=== PATIENT | female | born 1940 | race African-American/Black ===

== ENCOUNTER 2019-08-29 15:03 | Inpatient (IN) | payer MEDICARE, MEDICAID ==
[~2019-08-29] VITALS: Ht 162.6 cm; Wt 79.4 kg
[2019-08-29 15:15] VITALS: BP 186/82
--- NOTE | 2019-08-29 15:18 | Emergency Room Report ---
History of Present Illness General Chief Complaint: Behavioral Complaint Source: Patient Present Illness HPI 79-year-old female presents ED for evaluation. Brought in by EMS. Per family patient was observed shaking in the car. Patient states she had a vision of "Rosemary Goodman". States that this vision makes her shake. States she feels fine at this time. States she has had similar visions in the past. Denies headache. Denies fevers or chills. Denies any weakness. Denies chest pain or shortness of breath. No other aggravating relieving factors. Denies any other associated symptoms Allergies: Coded Allergies: No Known Allergies (Verified , 09/18/08) Patient History Past Medical History: DM, HTN Past Surgical History: none Pertinent Family History: none Social History: Denies: smoking, alcohol use, drug use Now: No Immunizations: UTD Reviewed Nursing Documentation: PMH: Agreed; PSxH: Agreed Nursing Documentation-PMH Past Medical History: No History, Except For Hx Hypertension: Yes Hx Diabetes: Yes Review of Systems All Other Systems: negative except mentioned in HPI Physical Exam Vital Signs Date Time Temp Pulse Resp B/P (MAP) Pulse Ox O2 Delivery O2 Flow Rate FiO2 08/29/19 15:00 98.6 74 14 186/82 (116) 99 Room Air Sp02 EP Interpretation: reviewed, normal General Appearance: no apparent distress, alert, GCS 15, non-toxic Head: normocephalic, atraumatic Eyes: bilateral eye normal inspection, bilateral eye PERRL ENT: hearing grossly normal, normal pharynx, no angioedema, normal voice Neck: full range of motion, supple/symm/no masses Respiratory: chest non-tender, lungs clear, normal breath sounds, speaking full sentences Cardiovascular #1: regular rate, rhythm, no edema Cardiovascular #2: 2+ carotid (R), 2+ carotid (L), 2+ radial (R), 2+ radial (L) , 2+ dorsalis pedis (R), 2+ dorsalis pedis (L) Gastrointestinal: normal bowel sounds, non tender, soft, non-distended, no guarding, no rebound Rectal: deferred Genitourinary: normal inspection, no CVA tenderness Musculoskeletal: back normal, normal range of motion, gait/station normal, non- tender Neurologic: alert, motor strength/tone normal, oriented x3, sensory intact, responsive, speech normal Psychiatric: judgement/insight normal, memory normal, mood/affect normal, no suicidal/homicidal ideation Reflexes: 3+ bicep (R), 3+ bicep (L), 3+ tricep (R), 3+ tricep (L), 3+ knee (R) , 3+ knee (L) Lymphatic: no adenopathy Medical Decision Making Diagnostic Impression: Primary Impression: Acute encephalopathy Additional Impression: Unsteady gait ER Course Hospital Course 79-year-old female presents with tremors, temporary confusion. Differential diagnosis includes- breakthrough seizure, ETOH, psychosis Clinical course Patient placed on stretcher. Initial history and physical I ordered labs, IV fluids, CT brain Labs-electrolytes okay, no leukocytosis, hemoglobin/hematocrit stable, UA negative CT Brain ok Given age and presentation I believe patient should be admitted. Patient also unsteady on gait. Not safe for discharge at this time. patient admitted to Dr Marrufo's service i. I feel this is a highly complex case requiring extensive working including EKG/Rhythm strip, Xray/CT/US, Blood/urine lab work, repeat exams while in ED, and administration of strong opiates/narcotics for pain control, admission to hospital or close patient follow up. Diagnosis - acute encephalopathy, unsteady gait admitted to floor in serious condition Labs Test 08/29/19 15:18 White Blood Count 6.3 K/UL (4.8-10.8) Red Blood Count 4.31 M/UL (4.20-5.40) Hemoglobin 13.5 G/DL (12.0-16.0) Hematocrit 41.6 % (37.0-47.0) Mean Corpuscular Volume 96 FL (80-99) Mean Corpuscular Hemoglobin 31.3 PG (27.0-31.0) Mean Corpuscular Hemoglobin Concent 32.5 G/DL (32.0-36.0) Red Cell Distribution Width 13.5 % (11.6-14.8) Platelet Count 183 K/UL (150-450) Mean Platelet Volume 9.0 FL (6.5-10.1) Neutrophils (%) (Auto) 42.7 % (45.0-75.0) Lymphocytes (%) (Auto) 46.0 % (20.0-45.0) Monocytes (%) (Auto) 7.2 % (1.0-10.0) Eosinophils (%) (Auto) 2.8 % (0.0-3.0) Basophils (%) (Auto) 1.2 % (0.0-2.0) Urine Color Pale yellow Urine Appearance Clear Urine pH 6 (4.5-8.0) Urine Specific [place] 1.005 (1.005-1.035) Urine Protein Negative (NEGATIVE) Urine Glucose (UA) Negative (NEGATIVE) Urine Ketones Negative (NEGATIVE) Urine Blood Negative (NEGATIVE) Urine Nitrite Negative (NEGATIVE) Urine Bilirubin Negative (NEGATIVE) Urine Urobilinogen Normal MG/DL (0.0-1.0) Urine Leukocyte Esterase Negative (NEGATIVE) Sodium Level 142 MMOL/L (136-145) Potassium Level 3.9 MMOL/L (3.5-5.1) Chloride Level 106 MMOL/L (98-107) Carbon Dioxide Level 28 MMOL/L (21-32) Anion Gap 8 mmol/L (5-15) Blood Urea Nitrogen 24 mg/dL (7-18) Creatinine 1.0 MG/DL (0.55-1.30) Estimat Glomerular Filtration Rate > 60 mL/min (>60) Glucose Level 121 MG/DL (74-106) Calcium Level 9.8 MG/DL (8.5-10.1) Total Bilirubin 0.3 MG/DL (0.2-1.0) Aspartate Amino Transf (AST/SGOT) 28 U/L (15-37) Alanine Aminotransferase (ALT/SGPT) 24 U/L (12-78) Alkaline Phosphatase 88 U/L (46-116) Ammonia < 10 umol/L (11-32) Total Protein 7.8 G/DL (6.4-8.2) Albumin 3.4 G/DL (3.4-5.0) Globulin 4.4 g/dL Albumin/Globulin Ratio 0.8 (1.0-2.7) Salicylates Level 0.9 ug/mL (2.8-20) Urine Opiates Screen Negative (NEGATIVE) Acetaminophen Level < 2 MCG/ML (10-30) Urine Barbiturates Screen Negative (NEGATIVE) Phencyclidine (PCP) Screen Negative (NEGATIVE) Urine Amphetamines Screen Negative (NEGATIVE) Urine Benzodiazepines Screen Negative (NEGATIVE) Urine Cocaine Screen Negative (NEGATIVE) Urine Marijuana (THC) Screen Negative (NEGATIVE) Serum Alcohol < 3 mg/dL CT/MRI/US Diagnostic Results CT/MRI/US Diagnostic Results : Imaging Test Ordered: CT head Impression Findings: No acute intracranial hemorrhage or edema. No mass effect or midline shift. Normal for age ventricles and extra axial CSF spaces. Minimal periventricular deep white matter low-attenuation, consistent with chronic microvascular ischemic change. Old lacunar infarcts are seen in the left basal ganglia. The calvarium is intact. Incidental finding is noted of failure fusion of the posterior arch of C1. Visualized orbits are unremarkable. The mastoids are clear. The visualized sinuses are clear Impression: Mild age-related changes. Old left basal ganglia lacunar infarcts. Negative for acute intracranial bleed or mass effect Last Vital Signs Date Time Temp Pulse Resp B/P (MAP) Pulse Ox O2 Delivery O2 Flow Rate FiO2 08/29/19 15:00 98.6 74 14 186/82 (116) 99 Room Air Status: improved Disposition: ADMITTED INPATIENT Condition: Serious Rian Bose MD Aug 29, 2019 15:18
[2019-08-29 16:00] LABS: BASOPHILS % (AUTO) 1.2 % (0.0-2.0); EOSINOPHILS % (AUTO) 2.8 % (0.0-3.0); HEMATOCRIT 41.6 % (37.0-47.0); HEMOGLOBIN 13.5 G/DL (12.0-16.0); MEAN CORPUSCULAR VOLUME 96 FL (80-99); MONOCYTES % (AUTO) 7.2 % (1.0-10.0); NEUTROPHILS % (AUTO) 42.7 % (45.0-75.0); PLATELET COUNT 183 K/UL (150-450); RED BLOOD COUNT 4.31 M/UL (4.20-5.40); RED CELL DISTRIBUTION WIDTH 13.5 % (11.6-14.8); WHITE BLOOD COUNT 6.3 K/UL (4.8-10.8)
[2019-08-29 16:04] LABS: APPEARANCE,URINE CLEAR; BILIRUBIN, URINE NEGATIVE (NEGATIVE); COLOR,URINE PALE YELLOW; GLUCOSE, URINE (UA) NEGATIVE (NEGATIVE); KETONES,URINE NEGATIVE (NEGATIVE); LEUKOCYTE ESTERASE ,URINE NEGATIVE (NEGATIVE); NITRITE,URINE NEGATIVE (NEGATIVE); PH,URINE 6 (4.5-8.0); PROTEIN,URINE NEGATIVE (NEGATIVE); UROBILINOGEN,URINE NORMAL MG/DL (0.0-1.0)
[2019-08-29 16:14] LABS: ANION GAP 8 mmol/L (5-15); BLOOD UREA NITROGEN 24 mg/dL (7-18); CALCIUM 9.8 MG/DL (8.5-10.1); CARBON DIOXIDE 28 MMOL/L (21-32); CHLORIDE 106 MMOL/L (98-107); POTASSIUM 3.9 MMOL/L (3.5-5.1); SODIUM 142 MMOL/L (136-145)
[2019-08-29 16:16] LABS: ALANINE AMINOTRANSFERASE 24 U/L (12-78); ALBUMIN 3.4 G/DL (3.4-5.0); ALBUMIN/GLOBULIN RATIO 0.8 (1.0-2.7); ALKALINE PHOSPHATASE 88 U/L (46-116); ASPARTATE AMINO TRANSFERASE 28 U/L (15-37); BILIRUBIN,TOTAL 0.3 MG/DL (0.2-1.0)
--- NOTE | 2019-08-29 16:24 | Diagnostic Imaging Report ---
Indications: Altered mental status Technique: Spiral acquisitions obtained through the brain. Angled axial and coronal 5 x 5 mm slices were reconstructed. Total dose length product 965 mGycm. CTDI vol(s) 53 mGy. Dose reduction achieved using automated exposure control Comparison: None. Findings: No acute intracranial hemorrhage or edema. No mass effect or midline shift. Normal for age ventricles and extra axial CSF spaces. Minimal periventricular deep white matter low-attenuation, consistent with chronic microvascular ischemic change. Old lacunar infarcts are seen in the left basal ganglia. The calvarium is intact. Incidental finding is noted of failure fusion of the posterior arch of C1. Visualized orbits are unremarkable. The mastoids are clear. The visualized sinuses are clear Impression: Mild age-related changes. Old left basal ganglia lacunar infarcts. Negative for acute intracranial bleed or mass effect The CT scanner at [facility] is accredited by the [employer] and the scans are performed using protocols designed to limit radiation exposure to as low as reasonably achievable to attain images of sufficient resolution adequate for diagnostic evaluation.
[2019-08-29 16:55] LABS: AMMONIA < 10 umol/L (11-32)
[2019-08-29 18:06] VITALS: BP 156/82
[2019-08-29] MEDS ORDERED: DiphenhydrAMINE 25mg Tab ORAL PRN (18:45)
[2019-08-29] MEDS ORDERED: Mylanta II UD 30ml ORAL PRN (18:45)
--- NOTE | 2019-08-29 19:48 | Diagnostic Imaging Report ---
Indication: Altered mental status and unsteady gait Technique: sagittal T1 fast spin echo, axial T1 FLAIR, axial T2 FLAIR, axial T2 FS PROPELLER, axial T2* GRE, axial diffusion weighted images. ADC and exponential ADC maps generated Comparison: CT brain from 4 hours earlier Findings: No abnormal areas of restricted diffusion to suggest acute infarction. No acute hemorrhage or edema. No mass effect nor midline shift. Normal size, for age, ventricles and extra axial CSF spaces. Patent cavum septum pellucidum-normal anatomic variant. Scattered areas of punctate high T2 signal are seen in the deep white matter bilaterally, likely representing chronic microvascular ischemic changes.. The visualized sinuses are clear. There is evidence of prior bilateral cataract surgery. The vascular flow voids are preserved Impression: Negative for acute intracranial bleed, mass effect, or infarct. Scattered punctate T2 hyperintensities, likely reflecting chronic microvascular ischemic changes
[2019-08-29] MEDS ORDERED: SIMVASTATIN20 MG ORAL (19:50)
[2019-08-29] MEDS ORDERED: VITAMIN B122500 MCG PO (19:50)
[2019-08-29] MEDS ORDERED: ASPIR 8181 MG ORAL (19:50)
[2019-08-29] MEDS ORDERED: FOLIC ACID1 MG ORAL (19:50)
[2019-08-29] MEDS ORDERED: LISINOPRIL40 MG ORAL (19:50)
[2019-08-29] MEDS ORDERED: FISH OIL CAP1000 MG ORAL (19:50)
[2019-08-29] MEDS ORDERED: VITAMIN D3 COM1 EACH PO (19:50)
[2019-08-29] MEDS ORDERED: AMLODIPINE BESYL5 MG ORAL (19:50)
[2019-08-29] MEDS ORDERED: METFORMIN HCL500 M1 ORAL (19:50)
[2019-08-29] MEDS: Aspirin Baby 81mg ORAL SCH (20:00)
[2019-08-29] MEDS: Heparin 5000 units/ml inj SUBQ SCH (21:21)
[2019-08-29] MEDS: Docusate 100mg cap ORAL SCH (21:21)
[2019-08-30 00:25] VITALS: BP 152/89
[2019-08-30 03:49] VITALS: BP 143/68
[2019-08-30 08:00] VITALS: BP 140/77
[2019-08-30] MEDS: Aspirin Baby 81mg ORAL SCH (08:25)
[2019-08-30] MEDS: Docusate 100mg cap ORAL SCH ×2 (08:25→20:55)
[2019-08-30] MEDS: Heparin 5000 units/ml inj SUBQ SCH ×2 (08:28→20:58)
--- NOTE | 2019-08-30 09:10 | History and Physical ---
History of Present Illness General Date patient seen: Aug 30, 2019 Time patient seen: 07:00 Reason for Hospitalization: Behavioral Complaint Present Illness HPI 79 year old woman with history of HTN, DM, no known cardiac disease who presented to the ED last night after family observed her shaking in the car. Patient states she had a vision of "Rosemary holding peace Goodman". States that this vision makes her shake. She also reports left leg weakness without pain Denies fevers or chills. Denies chest pain or shortness of breath. No other aggravating relieving factors. Denies any other complaints. In ED initial workup including basic lab, head CT and MRI brain were negative for acute abnormality. Family Hx: No premature CAD Social Hx: No alcohol or drugs Allergies: Coded Allergies: No Known Allergies (Verified , 09/18/08) Medication History Scheduled Amlodipine Besylate* (Amlodipine Besylate*), 5 MG ORAL DAILY, (Reported) Aspirin* (Aspir 81*), 81 MG ORAL DAILY, (Reported) Fish Oil (Fish Oil 1,000 mg Capsule), 1,000 MG ORAL DAILY, (Reported) Folic Acid* (Folic Acid*), 1 MG ORAL DAILY, (Reported) Lisinopril* (Lisinopril*), 40 MG ORAL DAILY, (Reported) Metformin Hcl* (Metformin Hcl*), 500 MG ORAL TWICE A DAY, (Reported) Simvastatin (Zocor), 20 MG ORAL BEDTIME, (Reported) Miscellaneous Medications Cyanocobalamin (Vitamin B-12) (Vitamin B12), 1,000 MCG PO, (Reported) Mv-Mn/Iron/Fa/Herbal Cmplx#190 (Vitamin D3 Complete Caplet), 1 EACH PO, ( Reported) Patient History Healthcare decision maker Resuscitation status Full Code Advanced Directive on File No Review of Systems Constitutional: Denies: chills, fever Eye: Denies: eye pain, blurred vision, double vision Respiratory: Denies: cough Cardiovascular: Denies: chest pain Gastrointestinal: Denies: abdominal pain, constipation Genitourinary: Denies: dysuria Musculoskeletal: Denies: back pain Neurological: Reports: focal weakness; Denies: headache Endocrine: Denies: excessive sweating Hematologic/Lymphatic: Denies: anemia Physical Exam General Appearance: no apparent distress, alert HEENT: atraumatic, anicteric Neck: normal alignment, supple, normal inspection Respiratory/Chest: lungs clear, normal breath sounds, no respiratory distress Cardiovascular/Chest: normal rate, regular rhythm Abdomen: non tender, soft Extremities: non-tender, normal inspection Neurologic: validation manager II-XII grossly normal, no motor/sensory deficits, normal mood/ affect Last 24 Hour Vital Signs Date Time Temp Pulse Resp B/P (MAP) Pulse Ox O2 Delivery O2 Flow Rate FiO2 08/30/19 03:49 97.5 66 18 143/68 (93) 96 08/30/19 00:25 97.7 67 18 152/89 (110) 96 08/29/19 21:42 Room Air 08/29/19 20:07 Room Air 08/29/19 19:55 98.4 87 20 150/76 96 Room Air 08/29/19 18:06 98.4 79 14 156/82 99 Room Air 08/29/19 15:15 74 14 Room Air 08/29/19 15:15 98.6 14 186/82 99 Room Air 08/29/19 15:00 98.6 74 14 186/82 (116) 99 Room Air Intake and Output 08/29/19 08/30/19 19:00 07:00 Output Total 600 ml Balance -600 ml Output Urine Total 600 ml # Voids 1 Laboratory Tests Test 08/29/19 15:18 White Blood Count 6.3 K/UL (4.8-10.8) Red Blood Count 4.31 M/UL (4.20-5.40) Hemoglobin 13.5 G/DL (12.0-16.0) Hematocrit 41.6 % (37.0-47.0) Mean Corpuscular Volume 96 FL (80-99) Mean Corpuscular Hemoglobin 31.3 PG (27.0-31.0) H Mean Corpuscular Hemoglobin Concent 32.5 G/DL (32.0-36.0) Red Cell Distribution Width 13.5 % (11.6-14.8) Platelet Count 183 K/UL (150-450) Mean Platelet Volume 9.0 FL (6.5-10.1) Neutrophils (%) (Auto) 42.7 % (45.0-75.0) L Lymphocytes (%) (Auto) 46.0 % (20.0-45.0) H Monocytes (%) (Auto) 7.2 % (1.0-10.0) Eosinophils (%) (Auto) 2.8 % (0.0-3.0) Basophils (%) (Auto) 1.2 % (0.0-2.0) Urine Color Pale yellow Urine Appearance Clear Urine pH 6 (4.5-8.0) Urine Specific [place] 1.005 (1.005-1.035) Urine Protein Negative (NEGATIVE) Urine Glucose (UA) Negative (NEGATIVE) Urine Ketones Negative (NEGATIVE) Urine Blood Negative (NEGATIVE) Urine Nitrite Negative (NEGATIVE) Urine Bilirubin Negative (NEGATIVE) Urine Urobilinogen Normal MG/DL (0.0-1.0) Urine Leukocyte Esterase Negative (NEGATIVE) Sodium Level 142 MMOL/L (136-145) Potassium Level 3.9 MMOL/L (3.5-5.1) Chloride Level 106 MMOL/L (98-107) Carbon Dioxide Level 28 MMOL/L (21-32) Anion Gap 8 mmol/L (5-15) Blood Urea Nitrogen 24 mg/dL (7-18) H Creatinine 1.0 MG/DL (0.55-1.30) Estimat Glomerular Filtration Rate > 60 mL/min (>60) Glucose Level 121 MG/DL (74-106) H Calcium Level 9.8 MG/DL (8.5-10.1) Total Bilirubin 0.3 MG/DL (0.2-1.0) Aspartate Amino Transf (AST/SGOT) 28 U/L (15-37) Alanine Aminotransferase (ALT/SGPT) 24 U/L (12-78) Alkaline Phosphatase 88 U/L (46-116) Ammonia < 10 umol/L (11-32) L Total Protein 7.8 G/DL (6.4-8.2) Albumin 3.4 G/DL (3.4-5.0) Globulin 4.4 g/dL Albumin/Globulin Ratio 0.8 (1.0-2.7) L Salicylates Level 0.9 ug/mL (2.8-20) L Urine Opiates Screen Negative (NEGATIVE) Acetaminophen Level < 2 MCG/ML (10-30) L Urine Barbiturates Screen Negative (NEGATIVE) Phencyclidine (PCP) Screen Negative (NEGATIVE) Urine Amphetamines Screen Negative (NEGATIVE) Urine Benzodiazepines Screen Negative (NEGATIVE) Urine Cocaine Screen Negative (NEGATIVE) Urine Marijuana (THC) Screen Negative (NEGATIVE) Serum Alcohol < 3 mg/dL Height (Feet): 5 Height (Inches): 4.00 Weight (Pounds): 175 Medications Current Medications Medications (Trade) Dose Ordered Sig/Bibi Route PRN Reason Start Time Stop Time Status Last Admin Dose Admin Acetaminophen (Tylenol) 650 mg Q4H PRN ORAL Mild Pain (Pain Scale 1-3) 08/29/19 18:45 09/28/19 18:44 Al Hydroxide/Mg Hydroxide (Mylanta II) 30 ml Q6H PRN ORAL dyspepsia 08/29/19 18:45 09/28/19 18:44 Aspirin (ASA) 81 mg DAILY ORAL 08/29/19 20:00 10/13/19 19:59 08/30/19 08:25 Dextrose (Dextrose 50%) 25 ml Q30M PRN IV Hypoglycemia 08/29/19 18:45 09/28/19 18:44 Dextrose (Dextrose 50%) 50 ml Q30M PRN IV Hypoglycemia 08/29/19 18:45 09/28/19 18:44 Diphenhydramine HCl (Benadryl) 25 mg Q6H PRN ORAL Itching/Pruritis 08/29/19 18:45 09/28/19 18:44 Docusate Sodium (Colace) 100 mg EVERY 12 HOURS ORAL 08/29/19 21:00 09/28/19 20:59 08/30/19 08:25 Heparin Sodium (Porcine) (Heparin 5000 units/ml) 5,000 units EVERY 12 HOURS SUBQ 08/29/19 21:00 10/13/19 20:59 08/30/19 08:28 Ondansetron HCl (Zofran) 4 mg Q6H PRN IVP Nausea & Vomiting 08/29/19 18:45 09/28/19 18:44 Assessment/Plan Diagnosis [place] I: 79 year old woman with HTN and DM who presented to the hospital with acute encephalopathy and left leg weakness #Acute encephalopathy, improved #LLE weakness, improved, possible TIA -admit to medical service -cardiac monitoring to eval for afib -TTE -ASA, Lipitor -PT/OT -VTE prophylaxis HSQ -Neurology consult, spoke with Dr. Fields #DM type 2 -hold metformin -ISS #HTN, SBP in 140s -hold home lisinopril and amlodipine for now -monitor pressures I spent 70 minutes on this patient's case, and >50% was dedicated to counseling and/or care coordination. I spent an additional 35 minutes on review of medical records including prior medical records, consult notes, progress notes, procedures, imaging, labs, hemodynamics, and other clinical documentation. Gilbert Carvajal MD Aug 30, 2019 09:10
[2019-08-30] MEDS ORDERED: DiphenhydrAMINE 25mg Tab ORAL PRN (10:46)
[2019-08-30] MEDS ORDERED: Mylanta II UD 30ml ORAL PRN (10:46)
[2019-08-30 11:51] VITALS: BP 146/71
[2019-08-30 16:00] VITALS: BP 120/69
[2019-08-30] MEDS ORDERED: Gadavist 7.5mMol/7.5ml vial IV PRN ×2 (18:45)
[2019-08-30 20:00] VITALS: BP 126/72
[2019-08-31] VITALS: BP 115/54
--- NOTE | 2019-08-31 00:10 | Initial Psychiatric Evaluation ---
Psychiatry Consultation Psychiatry Consultation Chief Complaint: Behavioral Complaint Allergies: Coded Allergies: No Known Allergies (Verified , 09/18/08) Medication History Scheduled Amlodipine Besylate* (Amlodipine Besylate*), 5 MG ORAL DAILY, (Reported) Aspirin* (Aspir 81*), 81 MG ORAL DAILY, (Reported) Fish Oil (Fish Oil 1,000 mg Capsule), 1,000 MG ORAL DAILY, (Reported) Folic Acid* (Folic Acid*), 1 MG ORAL DAILY, (Reported) Lisinopril* (Lisinopril*), 40 MG ORAL DAILY, (Reported) Metformin Hcl* (Metformin Hcl*), 500 MG ORAL TWICE A DAY, (Reported) Simvastatin (Zocor), 20 MG ORAL BEDTIME, (Reported) Miscellaneous Medications Cyanocobalamin (Vitamin B-12) (Vitamin B12), 1,000 MCG PO, (Reported) Mv-Mn/Iron/Fa/Herbal Cmplx#190 (Vitamin D3 Complete Caplet), 1 EACH PO, ( Reported) Objective Data Height (Feet): 5 Height (Inches): 4.00 Weight (Pounds): 175 Dale Boswell MD Aug 31, 2019 00:10
[2019-08-31 04:00] VITALS: BP 130/70
[2019-08-31 08:00] VITALS: BP 142/78
[2019-08-31] MEDS: Docusate 100mg cap ORAL SCH ×2 (08:27→21:12)
[2019-08-31] MEDS: Aspirin Baby 81mg ORAL SCH (08:27)
[2019-08-31] MEDS: Heparin 5000 units/ml inj SUBQ SCH ×2 (08:28→21:12)
--- NOTE | 2019-08-31 08:45 | Consultation ---
DATE OF CONSULTATION: 08/30/2019 NEUROLOGICAL CONSULTATION CONSULTING PHYSICIAN: Carlos Fields M.D. CHIEF COMPLAINT: This is the first [facility] admission for this 79-year-old right-handed woman with AODM type 2 since 1983 and hypertension for years and hyperlipidemia for years. She was brought to the hospital with a chief complaint of shaking. HISTORY OF PRESENT ILLNESS: The patient has had shaking beginning 2 or 3 years ago without any falls. I cannot get a good history out of her; however, on Wednesday, she went to her doctor, got some blood tests and . She got a slight headache at that time in her forehead. However, the patient went home. Yesterday, the patient was at her son's house. Last night, her whole body began to shake. She also "saw Rosemary holding the baby Rex." This lasted for 2 minutes. She has had these visions in the past. She also had significant pain in the left lower leg and had previous right knee surgery with a lot of pain. She does not know any hearing loss or tinnitus. She may have had episodes of vertigo better. There is no dysarthria or dysphagia. The patient does not drink, smoke, or take illegal drugs. She has no fever or chills. Yesterday, she patient denied any weakness, but today she has trouble moving her legs, especially the left one with complaints of pain. The patient had a blood pressure of 156/82, pretty much was stable. 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 It was negative for any other lesions. There was noted failure of fusion of the posterior arch of C1 and chronic microvascular ischemic disease. An MRI of the brain yesterday revealed scattered areas of T2 signal, evidence of bilateral cataract surgery. There are no basal ganglia infarcts noted. The patient's CBC is normal except for slightly elevated MCH. White count is normal. Platelet count is normal. Chemistries revealed a slightly elevated BUN with a normal creatinine. The rest of the electrolytes are normal. Glucose is 121. Ammonia level was within the normal range. Other liver function tests were basically intact. Urinalysis basically was normal. Toxicology screen was negative. The patient had a 2D echocardiogram today, which revealed mitral and some aortic root calcification, normal cardiac sizes, ejection fraction 60 to 65%, there is mild tricuspid regurgitation, trace pulmonic regurgitation. Right ventricular systolic pressure is 32. I was asked to see the patient because of her leg weakness and confusion. The patient denies any dysarthria or dysphagia. There is no neck pain. The patient in the past was told she had a "light stroke" but cannot describe it. The patient in the past had an MRI scan of the brain and EEG at that time. I do not have those results. The patient denies any previous psychiatric history of depression or anxiety. The patient's sister had a stroke. PAST MEDICAL HISTORY/PAST MEDICAL ILLNESSES: AODM. See above. She takes vitamin B12 maybe for vitamin B12 deficiency. SURGERIES: She had tubal ligation, at least one and 4 other normal pregnancies. She had a right knee surgery and left foot surgery and a cyst removed on the left side of her trunk. SOCIAL HISTORY: The patient is retired. FAMILY HISTORY: Father of complications of hypertension. Her mother probably of hypertensive heart disease. Her sister had a stroke. See above. MEDICATIONS: She is on amlodipine 5 mg daily, aspirin 81 mg daily, B12 2500 mcg tablet mcg p.o., fish oil, folic acid, lisinopril 20 mg a day, metformin 500 mg b.i.d., simvastatin 20 mg a day, and multivitamin tablet. REVIEW OF SYSTEMS: Her appetite is good. She weighs 174 pounds and 4 feet 9 inches tall. PHYSICAL EXAMINATION: GENERAL: She is a well-developed obese woman, lying in bed, in no particular distress. She has occasional bilateral almost myoclonic jerks in the arms and occasional extensive jerking of the legs. symmetrical . VITAL SIGNS: The blood pressure is 133/68, pulse 66 and regular, temperature is 97.5 degrees, and respiration rate 18. HEENT: Examination of head, ears, eyes, nose, and throat reveals . NECK: There is no posterior cervical tenderness or muscle spasm. Neck is supple. Carotids 2+. No bruits. LUNGS: Breath sounds are decreased. CARDIOVASCULAR: PMI was not felt. JVP was not seen. The patient had normal S1. The S2 is physiologically split. There is no S3, S4, murmurs, or rubs. ABDOMEN: Obese. Bowel sounds intact. There is no tenderness or masses or organomegaly appreciated. BACK: There is tenderness in the mid back area. EXTREMITIES: Surgical scar on the right knee and tenderness in the right knee. NEUROLOGIC EXAMINATION: MENTAL STATUS: She is awake and alert. Judgment could not be tested. Affect is appropriate to mood. She is in a good mood. Past memory is intact to her birthday, which is 1940. Immediate recall is 3/3 objects. Recent recall is 1/3 objects at 5 minutes. Intellect, train and bicycle "are not same." Language function, spoken speech is basically fluent given that Sami is her second language. She did spell world forward, but could not spell backwards. Orientation, she knew it is August 2019 and it is . She knew she is at the hospital. . She is oriented to person. CRANIAL NERVE EXAMINATION: CRANIAL NERVE II: Visual kelley are intact to confrontation. Fundi are not visualized. CRANIAL NERVES III, IV, AND : She has conjugate saccadic smooth pursuit noted. No complaints of diplopia. Pupils are approximately 5 mm, round, light reactive. CRANIAL NERVE V: Facial and corneal sensation is intact to fine touch and pinprick. Pterygoid strength 5/5. CRANIAL NERVE VII: Facial strength is 5/5. CRANIAL NERVE VIII: Auditory acuity may be slightly decreased. CRANIAL NERVES IX AND X: Gag is intact. CRANIAL NERVE XI: Sternocleidomastoid strength is 5/5. CRANIAL NERVE XII: Tongue protrudes in the midline without fasciculations or atrophy. MUSCLE EXAMINATION: Muscle bulk is probably normal. Tone is decreased to normal. Strength is 5/5 in the upper extremities and 3/5 in the left lower extremity and 0/5 in the right lower extremity with complaint of pain. REFLEXES: +2 in the upper extremities, +1 to 1.5 at the left knee. The right knee reflex could not be done. Ankle reflexes are 0. Toes are downgoing on testing for Babinski response. COORDINATION: [id number] reveals slight endpoint tremor bilaterally. [id number] testing could not be done. SENSORY EXAMINATION: Proprioception was intact and vibration is decreased practically to the knees. Fine touch and pinprick were thought to be normal. IMPRESSION: This patient has one of several things. 1. The patient has either essential myoclonus, which I doubt, but she has mainly proximal large myoclonus. It is bilaterally symmetrical. 2. She did have epileptic myoclonus, which I seriously doubt. 3. I do not think it is symptomatic myoclonus related to spinal cord lesion, although MRI scans of her cervical and thoracic spine will be obtained. 4. 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 These are not periodic limb movements. There is no family history of jerkiness or seizures. Deepak-Creutzfeldt disease is not likely since she has had it for 3 years. There is some stimulant sensitivity associated with this. So, unusual especially in the myoclonus. None of them appear likely at this time. The Lyme disease, paraneoplastic syndrome, syphilis are unlikely as well as and other metabolic abnormalities are not likely. Subcortical myoclonus in the spinal cord is not likely. The patient has no strength in the right lower extremity. This may be partly related to pain, although the lesion involving the spinal cord is possible. She does not appear to have a Brown-Sequard syndrome since the pinprick seems to be normal on both sides. Again, this could be related to the hysterical conversion reaction. PLAN: 1. MRI scan of the cervical and thoracic spinal cords. 2. EEG. 3. We may want to try Keppra in two divided doses 250 mg, clonazepam, valproic acid, will be useful. Carlos Fields MD DR: JUNIOR JOB#: [id number] CC:
--- NOTE | 2019-08-31 09:32 | General Progress Note ---
Assessment/Plan Assessment/Plan: 79 year old woman with HTN and DM who presented to the hospital with acute encephalopathy and left leg weakness #Acute encephalopathy, improved #LLE weakness and clonus -continue inpatient level of care -cont cardiac monitoring -Neurology eval appreciated, obtain EEG, MRI cervical and thoracic spine -ASA, Lipitor -PT/OT -VTE prophylaxis HSQ #DM type 2 -hold metformin -ISS #HTN, SBP in 140s -hold home lisinopril and amlodipine for now -monitor pressures Time spent on encounter: 35 mins, >50% on pt counseling, coordination of care. Subjective Date patient seen: Aug 31, 2019 Time patient seen: 08:00 ROS Limited/Unobtainable: No Constitutional: Denies: chills, fever HEENT: Denies: blurred vision Cardiovascular: Denies: chest pain Respiratory: Denies: cough Gastrointestinal/Abdominal: Denies: abdomen distended, abdominal pain Genitourinary: Denies: burning, discharge Neurologic/Psychiatric: Denies: anxiety, depressed Endocrine: Denies: excessive sweating Allergies: Coded Allergies: No Known Allergies (Verified , 09/18/08) Subjective Follow up for LE weakness, myoclonues. MRI brain negative Suspected short runs of afib on tele overnight. Objective Last 24 Hour Vital Signs Date Time Temp Pulse Resp B/P (MAP) Pulse Ox O2 Delivery O2 Flow Rate FiO2 08/31/19 08:33 Room Air 08/31/19 08:00 98.1 61 18 142/78 (99) 97 08/31/19 04:00 72 08/31/19 04:00 97.7 69 20 130/70 (90) 97 08/31/19 00:00 98.2 67 20 115/54 (74) 95 08/31/19 00:00 67 08/30/19 21:00 Room Air 08/30/19 20:00 71 08/30/19 20:00 97.3 72 20 126/72 (90) 95 08/30/19 16:00 77 08/30/19 16:00 97.1 100 21 120/69 (86) 97 08/30/19 12:14 Room Air 08/30/19 12:00 86 08/30/19 11:51 97.9 96 20 146/71 (96) 95 Intake and Output 08/30/19 08/31/19 19:00 07:00 Intake Total 480 ml Output Total 300 ml Balance 480 ml -300 ml Intake Oral 480 ml Output Urine Total 300 ml # Voids 1 Height (Feet): 5 Height (Inches): 4.00 Weight (Pounds): 175 General Appearance: no apparent distress, alert Neck: normal alignment, supple, normal inspection Cardiovascular: normal rate, regular rhythm Respiratory/Chest: lungs clear, normal breath sounds, no respiratory distress Abdomen: non tender, soft, no organomegaly Extremities: non-tender, normal inspection, no calf tenderness Neurologic: other - LE weakness Gilbert Carvajal MD Aug 31, 2019 09:32
[2019-08-31 11:22] LABS: BASOPHILS % (AUTO) 1.3 % (0.0-2.0); EOSINOPHILS % (AUTO) 4.3 % (0.0-3.0); HEMATOCRIT 38.2 % (37.0-47.0); HEMOGLOBIN 12.5 G/DL (12.0-16.0); LYMPHOCYTES % (AUTO) 34.2 % (20.0-45.0); MEAN CORPUSCULAR VOLUME 96 FL (80-99); MONOCYTES % (AUTO) 8.7 % (1.0-10.0); NEUTROPHILS % (AUTO) 51.5 % (45.0-75.0); PLATELET COUNT 153 K/UL (150-450); RED CELL DISTRIBUTION WIDTH 12.3 % (11.6-14.8); WHITE BLOOD COUNT 4.8 K/UL (4.8-10.8)
[2019-08-31 11:35] LABS: ANION GAP 8 mmol/L (5-15); BLOOD UREA NITROGEN 23 mg/dL (7-18); CARBON DIOXIDE 27 MMOL/L (21-32); CHLORIDE 109 MMOL/L (98-107); CREATININE 0.9 MG/DL (0.55-1.30); POTASSIUM 4.6 MMOL/L (3.5-5.1); SODIUM 144 MMOL/L (136-145)
[2019-08-31 12:00] VITALS: BP 149/85
--- NOTE | 2019-08-31 14:57 | Diagnostic Imaging Report ---
Indication: Essential myoclonus, bilateral symmetrical, right lower extremity weakness Technique: Sagittal T1 FLAIR, sagittal and axial T2 FRFSE, sagittal STIR, axial 3-D COSMIC ASPIR, post contrast sagittal and axial T1 FSE fat-saturated images of the cervical spine Comparison: none Findings: Modic type II degenerative marrow signal abnormality is seen in the lower cervical spine. Cervical marrow signal is otherwise unremarkable. Bony alignment is normal. Vertebral body heights are preserved. No prevertebral soft tissue swelling. No intrinsic cord signal abnormality is demonstrated. No abnormal cord enhancement is demonstrated. At C2-3, there is mild circumferential annular bulge. There is somewhat striking ligamentum flavum hypertrophy. This results in at least moderate spinal stenosis, minimum AP dimension of the spinal canal 7 mm, with a slight degree of impingement on the cord at this level. There is moderate left neural foraminal stenosis at this level. The disc space is preserved. At C3-4, the disc space is preserved. There is no significant disc bulge or protrusion. However, short pedicles result in borderline narrowing of the spinal canal this level. There is moderate Narrowing of the left neural foramen. At C4-5, the disc space is preserved. No significant disc bulge, spinal stenosis, or neural foraminal stenosis. At C5-6, there is irregularity of the disc and minimal narrowing. There is also desiccation of the disc. There is broad-based posterior disc protrusion which results in borderline narrowing of the spinal canal at this level. There is at least moderate bilateral neural foraminal stenosis. At C6-7, there is mild to moderate degenerative disc narrowing. There is moderate to severe right, moderate left neural foraminal stenosis. No significant disc bulge or protrusion or spinal stenosis. At C7-T1, there is severe degenerative narrowing of the disc. No significant disc bulge or protrusion. There is mild bilateral neural foraminal stenosis. No significant disc or cervical enhancement is demonstrated. The included extraspinal soft tissues are unremarkable. Impression: No evidence of intrinsic spinal cord pathology. Degenerative changes, as detailed on a level bilateral basis above. There may be significant spinal stenosis at C2-3 in addition to multilevel neural foraminal stenoses.
--- NOTE | 2019-08-31 15:06 | Diagnostic Imaging Report ---
Indication: Right lower extremity severe weakness, essential myoclonus or proximal large myoclonus Technique: Sagittal T1 FLAIR, sagittal and axial T2 FRFSE, sagittal STIR, axial T1, pre and post contrast sagittal and axial T1 FSE fat-saturated images of the cervical spine Comparison: none Findings: A vertically oriented artifact results in some image degradation on the sagittal pre and postcontrast T1 images Intrinsic cord signal is normal. No intrinsic cord signal abnormality is evident. No abnormal contrast enhancement is seen within the cord. There is thoracic kyphotic deformity without evidence of compression fracture. The bony alignment is otherwise normal. The vertebral body heights are preserved there is mild degenerative narrowing of multiple mid thoracic discs. There is a small T10 vertebral body hemangioma noted. Some Modic type II degenerative marrow signal is seen in lower thoracic endplates. No significant disc bulge or protrusion, spinal stenosis, or neural foraminal stenosis noted. The conus medullaris terminates at the T12-L1 level. No abnormal spinal contrast enhancement demonstrated. The included extraspinal tissues demonstrate a cyst within the dome of the liver Impression: Negative for evidence of intrinsic cord pathology No acute abnormality No evidence of significant neural impingement.
[2019-08-31 16:00] VITALS: BP 122/66
[2019-08-31 20:00] VITALS: BP 147/77
--- NOTE | 2019-08-31 21:32 | Consultation ---
History of Present Illness General Date patient seen: Aug 31, 2019 Time patient seen: 18:54 Chief Complaint: Behavioral Complaint Present Illness HPI Patient was admited to [facility] due to hallucination, unsteady gait, generalized weakness. Imaging negative for acute CVA, old basal ganglia infarcts. Labs normal. She has a hx of HTN and DM, no prior cardiac history or MN. NO hx of arrhythmias. Allergies: Coded Allergies: No Known Allergies (Verified , 09/18/08) Medication History Scheduled Amlodipine Besylate* (Amlodipine Besylate*), 5 MG ORAL DAILY, (Reported) Aspirin* (Aspir 81*), 81 MG ORAL DAILY, (Reported) Fish Oil (Fish Oil 1,000 mg Capsule), 1,000 MG ORAL DAILY, (Reported) Folic Acid* (Folic Acid*), 1 MG ORAL DAILY, (Reported) Lisinopril* (Lisinopril*), 40 MG ORAL DAILY, (Reported) Metformin Hcl* (Metformin Hcl*), 500 MG ORAL TWICE A DAY, (Reported) Simvastatin (Zocor), 20 MG ORAL BEDTIME, (Reported) Miscellaneous Medications Cyanocobalamin (Vitamin B-12) (Vitamin B12), 1,000 MCG PO, (Reported) Mv-Mn/Iron/Fa/Herbal Cmplx#190 (Vitamin D3 Complete Caplet), 1 EACH PO, ( Reported) Patient History Healthcare decision maker Resuscitation status Full Code Advanced Directive on File No Review of Systems Constitutional: Reports: no symptoms Eye: Reports: no symptoms ENT: Reports: no symptoms Respiratory: Reports: no symptoms Cardiovascular: Reports: no symptoms Gastrointestinal: Reports: no symptoms Genitourinary: Reports: no symptoms Musculoskeletal: Reports: no symptoms Skin: Reports: no symptoms Psychiatric: Reports: no symptoms Neurological: Reports: no symptoms Endocrine: Reports: no symptoms Hematologic/Lymphatic: Reports: no symptoms Physical Exam General Appearance: no apparent distress, alert Lines, tubes and drains: peripheral HEENT: normocephalic, atraumatic, anicteric, mucous membranes moist, PERRL Neck: non-tender, normal alignment, supple, normal inspection Respiratory/Chest: chest wall non-tender, lungs clear, normal breath sounds, no respiratory distress, no accessory muscle use Cardiovascular/Chest: normal peripheral pulses, normal rate, regular rhythm Abdomen: normal bowel sounds, non tender, soft, no organomegaly, no mass Extremities: normal range of motion, non-tender, normal inspection, no calf tenderness, normal capillary refill, non-pitting Skin Exam: normal pigmentation, warm/dry, cyanotic Neurologic: airport manager II-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 grossly normal, no motor/sensory deficits Last 24 Hour Vital Signs Date Time Temp Pulse Resp B/P (MAP) Pulse Ox O2 Delivery O2 Flow Rate FiO2 08/31/19 16:00 96.8 67 20 122/66 (84) 98 08/31/19 15:44 63 08/31/19 12:00 97.7 69 19 149/85 (106) 97 08/31/19 11:51 64 08/31/19 08:33 Room Air 08/31/19 08:00 98.1 61 18 142/78 (99) 97 08/31/19 07:46 67 08/31/19 04:00 72 08/31/19 04:00 97.7 69 20 130/70 (90) 97 08/31/19 00:00 98.2 67 20 115/54 (74) 95 08/31/19 00:00 67 Intake and Output 08/30/19 08/31/19 19:00 07:00 Intake Total 480 ml Output Total 300 ml Balance 480 ml -300 ml Intake Oral 480 ml Output Urine Total 300 ml # Voids 1 Laboratory Tests Test 08/31/19 11:00 White Blood Count 4.8 K/UL (4.8-10.8) Red Blood Count 4.00 M/UL (4.20-5.40) L Hemoglobin 12.5 G/DL (12.0-16.0) Hematocrit 38.2 % (37.0-47.0) Mean Corpuscular Volume 96 FL (80-99) Mean Corpuscular Hemoglobin 31.3 PG (27.0-31.0) H Mean Corpuscular Hemoglobin Concent 32.7 G/DL (32.0-36.0) Red Cell Distribution Width 12.3 % (11.6-14.8) Platelet Count 153 K/UL (150-450) Mean Platelet Volume 8.8 FL (6.5-10.1) Neutrophils (%) (Auto) 51.5 % (45.0-75.0) Lymphocytes (%) (Auto) 34.2 % (20.0-45.0) Monocytes (%) (Auto) 8.7 % (1.0-10.0) Eosinophils (%) (Auto) 4.3 % (0.0-3.0) H Basophils (%) (Auto) 1.3 % (0.0-2.0) Sodium Level 144 MMOL/L (136-145) Potassium Level 4.6 MMOL/L (3.5-5.1) Chloride Level 109 MMOL/L (98-107) H Carbon Dioxide Level 27 MMOL/L (21-32) Anion Gap 8 mmol/L (5-15) Blood Urea Nitrogen 23 mg/dL (7-18) H Creatinine 0.9 MG/DL (0.55-1.30) Estimat Glomerular Filtration Rate > 60 mL/min (>60) Glucose Level 112 MG/DL (74-106) H Calcium Level 9.0 MG/DL (8.5-10.1) Height (Feet): 5 Height (Inches): 4.00 Weight (Pounds): 175 Medications Current Medications Medications (Trade) Dose Ordered Sig/Bibi Route PRN Reason Start Time Stop Time Status Last Admin Dose Admin Acetaminophen (Tylenol) 650 mg Q4H PRN ORAL Mild Pain (Pain Scale 1-3) 08/30/19 10:46 09/29/19 10:45 Al Hydroxide/Mg Hydroxide (Mylanta II) 30 ml Q6H PRN ORAL dyspepsia 08/30/19 10:46 09/29/19 10:45 Aspirin (ASA) 81 mg DAILY ORAL 08/31/19 09:00 10/13/19 19:59 08/31/19 08:27 Dextrose (Dextrose 50%) 25 ml Q30M PRN IV Hypoglycemia 08/30/19 10:45 09/28/19 18:44 Dextrose (Dextrose 50%) 50 ml Q30M PRN IV Hypoglycemia 08/30/19 10:45 09/28/19 18:44 Diphenhydramine HCl (Benadryl) 25 mg Q6H PRN ORAL Itching/Pruritis 08/30/19 10:46 09/29/19 10:45 Docusate Sodium (Colace) 100 mg EVERY 12 HOURS ORAL 08/30/19 21:00 09/28/19 20:59 08/31/19 21:12 Gadobutrol (Gadavist) 7.5 mmol NOW PRN IV Radiology Procedure 08/30/19 18:45 09/03/19 18:39 Gadobutrol (Gadavist) 7.5 mmol NOW PRN IV Radiology Procedure 08/30/19 18:45 09/03/19 18:39 Heparin Sodium (Porcine) (Heparin 5000 units/ml) 5,000 units EVERY 12 HOURS SUBQ 08/30/19 21:00 10/13/19 20:59 08/31/19 21:12 Levetiracetam (Keppra) 250 mg Q12HR ORAL 08/30/19 21:00 10/14/19 20:59 08/31/19 21:12 Ondansetron HCl (Zofran) 4 mg Q6H PRN IVP Nausea & Vomiting 08/30/19 10:46 09/29/19 10:45 Risperidone (RisperDAL) 1 mg BEDTIME ORAL 08/31/19 21:00 10/15/19 20:59 08/31/19 21:12 Assessment/Plan Status: stable Assessment/Plan: Assessment/Plan 79 year old woman with HTN and DM who presented to the hospital with acute encephalopathy and left leg weakness TIA HTN DM 1) Echocardiogram with bubble study 2) Carotid US 3) Aspirin 4) Statin 5) Continue blood pressure medications 6) Aggressive glucose control 7) Check heavy metals and utox 8) physical therapy 9) Continue telemetry, d/c with Reji Hill MD Aug 31, 2019 21:32
[2019-09-01] VITALS: BP 131/76
[2019-09-01 04:00] VITALS: BP 130/73
[2019-09-01 08:00] VITALS: BP 145/78
--- NOTE | 2019-09-01 08:39 | General Progress Note ---
Assessment/Plan Status: stable Assessment/Plan: 79 year old woman with HTN and DM who presented to the hospital with acute encephalopathy and left leg weakness #Acute encephalopathy, improved #LLE weakness and clonus #Possible TIA -continue inpatient level of care -cont cardiac monitoring, Cardiology eval appreciated -Neurology eval appreciated, MRI brain, cervical and thoracic spine negative. EEG pending, Carotid duplex pending -ASA, Lipitor -PT/OT eval appreciated -Spoke with correctional casework specialist and son regarding SNF -VTE prophylaxis HSQ #DM type 2 -hold metformin -ISS #HTN, SBP in 140s -hold home lisinopril and amlodipine for now -monitor pressures Time spent on encounter: 35 mins, >50% on pt counseling, coordination of care. Subjective Date patient seen: Sep 01, 2019 Time patient seen: 08:12 ROS Limited/Unobtainable: No Constitutional: Denies: chills, fever Cardiovascular: Denies: chest pain Respiratory: Denies: cough Gastrointestinal/Abdominal: Denies: abdomen distended, abdominal pain Genitourinary: Denies: burning, frequency Neurologic/Psychiatric: Denies: anxiety Allergies: Coded Allergies: No Known Allergies (Verified , 09/18/08) Subjective Follow up for LE weakness, myoclonues. MRI brain negative, cervical and thoracic spine negative seen by Cardiology seen by PT, SNF recommended Objective Last 24 Hour Vital Signs Date Time Temp Pulse Resp B/P (MAP) Pulse Ox O2 Delivery O2 Flow Rate FiO2 09/01/19 08:35 Room Air 09/01/19 04:00 97.0 57 16 130/73 (92) 97 09/01/19 03:34 53 09/01/19 00:00 97.3 60 16 131/76 (94) 96 08/31/19 23:53 68 08/31/19 21:00 Room Air 08/31/19 20:00 98.8 66 16 147/77 (100) 96 08/31/19 20:00 Room Air 08/31/19 19:28 65 08/31/19 16:00 96.8 67 20 122/66 (84) 98 08/31/19 15:44 63 08/31/19 12:00 97.7 69 19 149/85 (106) 97 08/31/19 11:51 64 Intake and Output 08/31/19 09/01/19 19:00 07:00 Intake Total 720 ml Balance 720 ml Intake Oral 720 ml # Voids 2 Laboratory Tests 08/31/19 11:00: White Blood Count 4.8, Red Blood Count 4.00L, Hemoglobin 12.5, Hematocrit 38.2, Mean Corpuscular Volume 96, Mean Corpuscular Hemoglobin 31.3H, Mean Corpuscular Hemoglobin Concent 32.7, Red Cell Distribution Width 12.3, Platelet Count 153, Mean Platelet Volume 8.8, Neutrophils (%) (Auto) 51.5, Lymphocytes (%) (Auto) 34.2, Monocytes (%) (Auto) 8.7, Eosinophils (%) (Auto) 4.3H, Basophils (%) (Auto ) 1.3, Sodium Level 144, Potassium Level 4.6, Chloride Level 109H, Carbon Dioxide Level 27, Anion Gap 8, Blood Urea Nitrogen 23H, Creatinine 0.9, Estimat Glomerular Filtration Rate > 60, Glucose Level 112H, Calcium Level 9.0 Height (Feet): 5 Height (Inches): 4.00 Weight (Pounds): 175 General Appearance: no apparent distress, alert Neck: normal alignment, supple Cardiovascular: normal rate, regular rhythm Respiratory/Chest: lungs clear, normal breath sounds Abdomen: non tender, soft Extremities: non-tender Neurologic: other - LE weakness Gilbert Carvajal MD Sep 01, 2019 08:39
[2019-09-01] MEDS: Docusate 100mg cap ORAL SCH ×2 (09:13→21:34)
[2019-09-01] MEDS: Aspirin Baby 81mg ORAL SCH (09:13)
[2019-09-01] MEDS: Heparin 5000 units/ml inj SUBQ SCH ×2 (09:15→21:40)
[2019-09-01 12:00] VITALS: BP 130/63
--- NOTE | 2019-09-01 12:31 | Cardiology Progress Note ---
Assessment/Plan Status: stable Assessment/Plan Assessment/Plan 79 year old woman with HTN and DM who presented to the hospital with acute encephalopathy and left leg weakness TIA HTN DM 1) Echocardiogram with bubble study 2) Carotid US 3) Aspirin 4) Statin 5) Continue blood pressure medications 6) Aggressive glucose control 7) Check heavy metals and utox 8) physical therapy 9) Continue telemetry, d/c with ziopatch Subjective Cardiovascular: Reports: no symptoms Respiratory: Reports: no symptoms Gastrointestinal/Abdominal: Reports: no symptoms Genitourinary: Reports: no symptoms Subjective No acute events ,vitals stable, no complaints no symptoms, studies pending Objective Last 24 Hour Vital Signs Date Time Temp Pulse Resp B/P (MAP) Pulse Ox O2 Delivery O2 Flow Rate FiO2 09/01/19 12:00 97.0 65 18 130/63 (85) 96 09/01/19 08:35 Room Air 09/01/19 08:00 97.5 61 20 145/78 (100) 95 09/01/19 07:48 69 09/01/19 04:00 97.0 57 16 130/73 (92) 97 09/01/19 03:34 53 09/01/19 00:00 97.3 60 16 131/76 (94) 96 08/31/19 23:53 68 08/31/19 21:00 Room Air 08/31/19 20:00 98.8 66 16 147/77 (100) 96 08/31/19 20:00 Room Air 08/31/19 19:28 65 08/31/19 16:00 96.8 67 20 122/66 (84) 98 08/31/19 15:44 63 General Appearance: no apparent distress, alert EENT: PERRL/EOMI, normal ENT inspection, TMs normal, pharynx normal Neck: non-tender, normal alignment, supple, normal inspection, no JVD Rhythm: NSR Cardiovascular: normal peripheral pulses, normal rate, regular rhythm Respiratory/Chest: chest wall non-tender, lungs clear, normal breath sounds, no respiratory distress, no accessory muscle use, respiratory distress Abdomen: normal bowel sounds, non tender, soft, no organomegaly, no mass Extremities: normal range of motion, non-tender, normal inspection, no calf tenderness 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
[2019-09-01 16:00] VITALS: BP 137/68
--- NOTE | 2019-09-01 16:30 | Electroencephalogram ---
DATE OF PROCEDURE: 08/31/2019 READING PHYSICIAN: Philip Carrillo M.D. PROCEDURE PERFORMED: EEG. HISTORY: This EEG was performed on an 79-year-old lady with a history of multiple medical problems including hypertension, diabetes mellitus, cerebrovascular disease, and an alteration in mental state who has been exhibiting some abnormal body jerking movements. The purpose of this EEG was to evaluate the patient for ongoing ictal or interictal phenomenon. TECHNICAL NOTE: This EEG was performed on a [employer] with electrodes placed on the scalp according to the International 10-20 system. Yvwtg-su-hhtrt and ekylp-bg-ghl montages were used. The EEG was technically satisfactory and was performed in the awake and drowsy states. OBSERVATIONS: In the best-awake state, the background activity consisted of low amplitude 6-7 Hz theta activity. Throughout the tracing, a moderate amount of EMG artifact was seen. Drowsiness was characterized by slowing of the background in the 4-5 Hz theta range with intermixed delta frequencies. No definite focal abnormalities or epileptiform discharges were seen. IMPRESSION: This is an abnormal EEG characterized by slowing of the background in the 6-7 Hz theta range and decrease in the amplitude of the waveforms. COMMENT: This study is consistent with an encephalopathy of a moderate degree. Clinical correlation is recommended. Philip Carrillo M.D., M.S.P.H. Clinical Neurophysiologist DR: Amos JOB#: [id number] SISI
--- NOTE | 2019-09-01 19:45 | Progress Note ---
DATE: 09/01/2019 SUBJECTIVE: The patient is doing lot better. She has no myoclonic jerks today. She is on her Keppra 250 mg p.o. b.i.d. Her MRI scans of the cervical and thoracic spine although showing some degenerative joint disease showed no cord lesions. PHYSICAL EXAMINATION: VITAL SIGNS: Blood pressure is 137/68, pulse is 61 and regular, respiration rate is 18, temperature is 97.9 degrees. MENTAL STATUS: The patient is in good spirits. Alert and awake. She knows it is 09/01/2019, knows it is Wednesday. The patient can spell world almost backwards DLORW. REFLEXES: She has bilateral downgoing toes on testing for Babinski response. CRANIAL NERVE EXAMINATION: Cranial nerves II through XII reveal no change. Pupils are approximately 4.5 mm, round, reactive to light. MUSCLE EXAMINATION: Muscle bulk and tone are normal. Strength is 5/5. COORDINATION: Psgeal-cyprwl-vwzx, azey-fo-ugwm testing are basically intact. Rapid alternating movements are intact. IMPRESSION: Neither the patient has essential myoclonus nor has functional disorder. I would prefer first diagnosis because she improved significantly with Keppra. I would continue her on her Keppra. She is almost ready for discharge. She is also on risperidone as well as. One dose was given yesterday evening. PLAN: Continue her medications. Carlos Fields MD DR: SAY/ERIC JOB#: [id number] CC:
[2019-09-01 20:00] VITALS: BP 143/71
[2019-09-02] VITALS: BP 134/75
[2019-09-02 04:00] VITALS: BP 136/79
[2019-09-02 08:00] VITALS: BP 135/77
[2019-09-02] MEDS: Docusate 100mg cap ORAL SCH ×2 (08:21→21:16)
[2019-09-02] MEDS: Aspirin Baby 81mg ORAL SCH (08:21)
[2019-09-02] MEDS: Heparin 5000 units/ml inj SUBQ SCH ×2 (08:28→21:24)
--- NOTE | 2019-09-02 11:26 | Cardiology Progress Note ---
Assessment/Plan Status: stable Assessment/Plan Assessment/Plan 79 year old woman with HTN and DM who presented to the hospital with acute encephalopathy and left leg weakness TIA HTN DM 1) Echocardiogram with bubble study 2) Carotid US 3) Aspirin 4) Statin 5) Continue blood pressure medications 6) Aggressive glucose control 7) Check heavy metals and utox 8) physical therapy 9) Continue telemetry, d/c with ziopatch Subjective Cardiovascular: Reports: no symptoms Respiratory: Reports: no symptoms Gastrointestinal/Abdominal: Reports: no symptoms Genitourinary: Reports: no symptoms Subjective No acute events ,vitals stable, no complaints no symptoms, tolerating keppra Objective Last 24 Hour Vital Signs Date Time Temp Pulse Resp B/P (MAP) Pulse Ox O2 Delivery O2 Flow Rate FiO2 09/02/19 09:00 Room Air 09/02/19 08:00 68 09/02/19 08:00 97.9 70 20 135/77 (96) 95 09/02/19 04:00 97.1 71 18 136/79 (98) 96 09/02/19 04:00 58 09/02/19 00:00 66 09/02/19 00:00 97.6 67 18 134/75 (94) 97 09/01/19 21:00 Room Air 09/01/19 20:00 66 09/01/19 20:00 97.3 63 18 143/71 (95) 96 09/01/19 16:00 97.9 58 18 137/68 (91) 94 09/01/19 16:00 61 09/01/19 12:00 97.0 65 18 130/63 (85) 96 09/01/19 11:31 64 General Appearance: no apparent distress, alert EENT: PERRL/EOMI, normal ENT inspection, TMs normal, pharynx normal Neck: non-tender, normal alignment, supple, normal inspection, no JVD Rhythm: NSR Cardiovascular: normal peripheral pulses, normal rate, regular rhythm Respiratory/Chest: chest wall non-tender, lungs clear, normal breath sounds Abdomen: normal bowel sounds, non tender, soft, no organomegaly, no mass Extremities: normal range of motion, non-tender, normal inspection, no calf tenderness, no swelling 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
[2019-09-02 12:00] VITALS: BP 122/68
[2019-09-02 16:00] VITALS: BP 124/62
--- NOTE | 2019-09-02 16:58 | General Progress Note ---
Assessment/Plan Problem List: (1) AMS (altered mental status) ICD Codes: R41.82 - Altered mental status, unspecified SNOMED: 506437111 (2) Unsteady gait ICD Codes: R26.81 - Unsteadiness on feet SNOMED: 388006370, 59086599 (3) Acute encephalopathy ICD Codes: G93.40 - Encephalopathy, unspecified SNOMED: 42062172, 647482683 (4) Behavioral change ICD Codes: R46.89 - Other symptoms and signs involving appearance and behavior SNOMED: 692110994 Status: stable Assessment/Plan: 79 year old woman with HTN and DM who presented to the hospital with acute encephalopathy and left leg weakness #Acute encephalopathy, improved #LLE weakness and clonus #Possible TIA -cardaiology consult appreciated. -Neurology eval appreciated, MRI brain, cervical and thoracic spine negative. -s/p EEG with nonspecific slowing, characteristic of encephalopathy -ASA, Lipitor -PT/OT eval appreciated -> did well. -discussed at length with family at bedside. Wants to take her home with home health. -home health order entered (09/01) -will need walker on d/c. -VTE prophylaxis HSQ #DM type 2 -hold metformin -ISS #HTN, SBP in 140s -hold home lisinopril. -Restarted home amlodipine 5 mg daily. -monitor pressures Extra 37 minutes spent on chart review, including labs, imaging, prior physician /library consultant documentation. Time of note doesn't reflect time of encounter. Subjective Date patient seen: Sep 02, 2019 Constitutional: Denies: no symptoms, chills, diaphoresis, fever, malaise, weakness, other HEENT: Denies: no symptoms, eye pain, blurred vision, tearing, double vision, ear pain, ear discharge, nose pain, nose congestion, throat pain, throat swelling, mouth pain, mouth swelling, other Cardiovascular: Denies: no symptoms, chest pain, edema, irregular heart rate, lightheadedness, palpitations, syncope, other Respiratory: Denies: no symptoms, cough, orthopnea, shortness of breath, SOB with excertion, SOB at rest, sputum, stridor, wheezing, other Gastrointestinal/Abdominal: Denies: no symptoms, abdomen distended, abdominal pain, black stools, tarry stools, blood in stool, constipated, diarrhea, difficulty swallowing, nausea, poor appetite, poor fluid intake, rectal bleeding , vomiting, other Genitourinary: Denies: no symptoms, burning, discharge, frequency, flank pain, hematuria, incontinence, pain, urgency, other Neurologic/Psychiatric: Denies: no symptoms, anxiety, depressed, emotional problems, headache, numbness, paresthesia, pre-existing deficit, seizure, tingling, tremors, weakness, other Endocrine: Denies: no symptoms, excessive sweating, flushing, intolerance to cold, intolerance to heat, increased hunger, increased thirst, increased urine, unexplained weight gain, unexplained weight loss, other Hematologic/Lymphatic: Denies: no symptoms, anemia, easy bleeding, easy bruising, other Allergies: Coded Allergies: No Known Allergies (Verified , 09/18/08) Subjective resting in bed comfortably, with son and granddaughter at bedside. questions answered. Objective Last 24 Hour Vital Signs Date Time Temp Pulse Resp B/P (MAP) Pulse Ox O2 Delivery O2 Flow Rate FiO2 09/02/19 16:00 98.1 66 20 124/62 (82) 97 09/02/19 12:28 66 122/68 09/02/19 12:00 70 09/02/19 12:00 97.7 66 20 122/68 (86) 96 09/02/19 09:00 Room Air 09/02/19 08:00 68 09/02/19 08:00 97.9 70 20 135/77 (96) 95 09/02/19 04:00 97.1 71 18 136/79 (98) 96 09/02/19 04:00 58 09/02/19 00:00 66 09/02/19 00:00 97.6 67 18 134/75 (94) 97 09/01/19 21:00 Room Air 09/01/19 20:00 66 09/01/19 20:00 97.3 63 18 143/71 (95) 96 Intake and Output 09/01/19 09/02/19 19:00 07:00 Intake Total 720 ml 600 ml Output Total 500 ml 600 ml Balance 220 ml 0 ml Intake Oral 720 ml 600 ml Output Urine Total 500 ml 600 ml Height (Feet): 5 Height (Inches): 4.00 Weight (Pounds): 175 General Appearance: no apparent distress, alert Neck: supple Cardiovascular: normal rate, regular rhythm Respiratory/Chest: lungs clear, normal breath sounds Abdomen: non tender, soft Extremities: normal range of motion Neurologic: alert, oriented x 3 Goldy Ortiz M.D. Sep 02, 2019 16:58
[2019-09-02 20:00] VITALS: BP 130/70
[2019-09-02] MEDS ORDERED: Atorvastatin 80mg tab ORAL SCH (21:00)
[2019-09-03] VITALS: BP 115/60
[2019-09-03 04:00] VITALS: BP 104/52
[2019-09-03 08:00] VITALS: BP 133/68
[2019-09-03] MEDS: Heparin 5000 units/ml inj SUBQ SCH (08:42)
[2019-09-03] MEDS: Aspirin Baby 81mg ORAL SCH (08:42)
[2019-09-03] MEDS: Docusate 100mg cap ORAL SCH (08:42)
[2019-09-03 12:00] VITALS: BP 105/57
--- NOTE | 2019-09-03 15:59 | Discharge Summary ---
Discharge Summary Hospital Course Date of Admission Aug 29, 2019 at 18:17 Date of Discharge 09/03/2019 Admitting Diagnosis encephlopathy, unsteady gait HPI Bobbi Gonzales is a 79 year old female who was admitted on Aug 29, 2019 at 18: 17 for Encephalopathy/Unsteady Gait Consultations cardiology, neurology Hospital Course 79 year old woman with HTN and DM who presented to the hospital with acute encephalopathy and left leg weakness. Seen by neuro, had MRI brain, cervical, thoracic spine which were all negative. EEG showed diffuse slowing, characteristic of encephalopathy. Worked well with PT. Being d/c'ed home on ASA , lipitor 80 daily with home health. Walker provided. Discharge Medications Continued Medications: Amlodipine Besylate* (Amlodipine Besylate*) 5 Mg Tablet 5 MG ORAL DAILY for , TAB (This prescription has been renewed) Aspirin* (Aspir 81*) 81 Mg Tablet.dr 81 MG ORAL DAILY for , TAB (This prescription has been renewed) Cyanocobalamin (Vitamin B-12) (Vitamin B12) 2,500 Mcg Tablet 1000 MCG PO for , TAB (This prescription has been renewed) Fish Oil (Fish Oil 1,000 mg Capsule) 1 Each Capsule 1000 MG ORAL DAILY for , CAP (This prescription has been renewed) Folic Acid* (Folic Acid*) 1 Mg Tablet 1 MG ORAL DAILY for , TAB (This prescription has been renewed) Lisinopril* (Lisinopril*) 40 Mg Tablet 40 MG ORAL DAILY for , TAB (This prescription has been renewed) Metformin Hcl* (Metformin Hcl*) 500 Mg Tablet 500 MG ORAL TWICE A DAY for , TAB (This prescription has been renewed) Mv-Mn/Iron/Fa/Herbal Cmplx#190 (Vitamin D3 Complete Caplet) 1 Each Tablet 1 EACH PO for , TAB (This prescription has been renewed) Discontinued Medications: Simvastatin (Zocor) 20 Mg Tablet 20 MG ORAL BEDTIME for , TAB Discharge Condition Upon Discharge: stable Discharge Vital Signs Last Vital Signs Date Time Temp Pulse Resp B/P (MAP) Pulse Ox O2 Delivery O2 Flow Rate FiO2 09/03/19 12:00 70 09/03/19 12:00 97.7 16 105/57 (73) 100 09/03/19 09:00 Room Air Discharge Disposition Patient was discharged to Discharge Diagnoses: (1) AMS (altered mental status) (2) Acute encephalopathy (3) Behavioral change (4) Unsteady gait Goldy Ortiz M.D. Sep 03, 2019 15:59
== END 2019-09-03 16:49 | disposition home health service (06) | DRG 92 ==
LOC: EDBD 15:03 → EMR 17:31 → 4E 18:17 → OBSVTOIN 18:17 → EDBEDREQ 18:50 → 2E 08-30 09:48
DX: G25.3 Myoclonus (principal); G45.9 Transient cerebral ischemic attack, unspecified; G93.40 Encephalopathy, unspecified; R26.81 Unsteadiness on feet; R53.1 Weakness; E11.9 Type 2 diabetes mellitus without complications; I10 Essential (primary) hypertension; R46.89 Other symptoms and signs involving appearance and behavior; Z79.84 Long term (current) use of oral hypoglycemic drugs; Z79.82 Long term (current) use of aspirin; Z86.73 Personal history of transient ischemic attack (TIA), and cerebral infarction without residual deficits
CPT/HCPCS: 36415; 70450; 70551; 72156; 72157; 80048; 80053; 80299; 80307; 81003; 82140; 85025; 93306; 95819; 99285; A9585; G0480